=== PATIENT | female | born 1940 | race Caucasian/White ===

== ENCOUNTER 2018-12-30 09:01 | Day surgery (SDC) | payer MEDICARE, OTHER ==
[~2018-12-30 09:01] MED LIST: Lactated Ringers 1,000 ML IV SCH; Lidocaine 1%/Sod Bicarbonate in NS 8.4% 1 ML Syringe IDERM PRN; Sodium Chloride 0.9% 10 ML Syringe FLUSH PRN
--- NOTE | 2018-12-30 09:45 | PCM.PREANE ---
Preanesthetic Assessment - Procedure Proposed Procedure: diag egd - Anesthesia/Transfusion/Family Hx Anesthesia History: Prior Anesthesia Reaction (1987 had trouble waking up and 2001 woke up with high bp) Family History of Anesthesia Reaction: No Transfusion History: Prior Transfusion Without Reaction - Review of Systems General: No Symptoms Pulmonary: No Symptoms Cardiovascular: No Symptoms, Chest Pain (this am- probably gas ) Gastrointestinal: Nausea (freequently) Neurological: No Symptoms Other: Reports: Sinus Problem, Neck Pain (3 days and frontal head pain), Depression, Anxiety - Physical Assessment NPO Status Date: 12/29/18 NPO Status Time: 23:25 O2 Sat by Pulse Oximetry: 98 Respiratory Rate: 16 Vital Signs: Last Vital Signs Temp 98.0 F 12/30/18 09:25 Pulse 85 12/30/18 09:25 Resp 16 12/30/18 09:25 BP 122/71 12/30/18 09:25 Pulse Ox 98 12/30/18 09:25 Height: 5 ft 2 in Weight: 38.192 kg ASA Class: 2 Mental Status: Alert & Oriented x3 Airway Class: Mallampati = 1 Dentition: Reports: Bridge Thyro-Mental Finger Breadths: 3 Mouth Opening Finger Breadths: 3 ROM/Head Extension: Full Lungs: Clear to Auscultation, Normal Respiratory Effort Cardiovascular: Regular Rate, Regular Rhythm - Allergies Allergies/Adverse Reactions: Allergies Allergy/AdvReac Type Severity Reaction Status Date / Time brimonidine [From Simbrinza] Allergy Other Verified 12/29/18 15:24 brinzolamide [From Simbrinza] Allergy Other Verified 12/29/18 15:24 codeine Allergy Other Verified 12/29/18 15:24 diphenhydramine Allergy Swelling Verified 12/29/18 15:24 [From Benadryl] Iodinated Contrast- Oral and Allergy Airway Verified 12/29/18 15:24 IV Dye Tightness latex Allergy Other Verified 12/29/18 15:24 milnacipran [From Savella] Allergy Other Verified 12/29/18 15:24 morphine Allergy Itching Verified 12/29/18 15:24 perfume Allergy Other Verified 12/29/18 15:24 pseudoephedrine Allergy Cannot Verified 12/29/18 15:24 Remember sulfasalazine Allergy Other Verified 12/29/18 15:24 [From Azulfidine] thimerosal Allergy Other Verified 12/29/18 15:24 acetaminophen [From Percocet] AdvReac Irritabilit Verified 12/29/18 15:24 y ciprofloxacin [From Cipro] AdvReac Liver Verified 12/29/18 15:24 Problems oxycodone [From Percocet] AdvReac Irritabilit Verified 12/29/18 15:24 y Penicillins AdvReac Other Verified 12/29/18 15:24 Sulfa (Sulfonamide AdvReac Other Verified 12/29/18 15:24 Antibiotics) - Blood Blood Available: No - Acknowledgements Anesthesia Type Planned: MAC Pt an Appropriate Candidate for the Planned Anesthesia: Yes Alternatives and Risks of Anesthesia Discussed w Pt/Guardian: Yes Pt/Guardian Understands and Agrees with Anesthesia Plan: Yes PreAnesthesia Questionnaire HEENT History: Reports: Cataract, Glaucoma, Hard of Hearing, Impaired Vision, Other (See Below) Other HEENT History: eustachian tube dysfunction, left otalgia, post nasal drip , bilateral hearing loss, TMJ arthralgia, tongue inflammation Respiratory History: Reports: Other (See Below) Other Respiratory History: scarring on lung tissue, history of URI Gastrointestinal History: Reports: GERD, Other (See Below) Other Gastrointestinal History: dysphagia, gastric ulcer Genitourinary History: Reports: Other (See Below) Other Genitourinary History: frequency, incontinence SOFTWARE DEVELOPER MANAGER History: Reports: Other (See Below) Other OB/BYN History: breast lump, fibrocystic breast disease with masectomy/ lumpectomy Musculoskeletal History: Reports: Osteoarthritis, Osteoporosis, Other (See Below ) Other Musculoskeletal History: rib fx from coughing during a bad cold; osteoporosis & Osteopenia Neurological History: Reports: Neuropathy, Peripheral Psychiatric History: Reports: Anxiety, Depression Endocrine/Metabolic History: Reports: Osteopenia, Osteoporosis Hematologic History: Reports: None Immunologic History: Reports: None Oncologic (Cancer) History: Reports: Uterine Dermatologic History: Reports: Other (See Below) Other Dermatologic History: hair loss, sebaceous gland hyperplasia, subcutaneous nodule - Past Surgical History HEENT Surgical History: Reports: Cataract Surgery, Oral Surgery, Tonsillectomy Cardiovascular Surgical History: Reports: None Respiratory Surgical History: Reports: None GI Surgical History: Reports: Cholecystectomy Female Surgical History: Reports: Breast Implant, Hysterectomy, Other (See Below) Other Female Surgeries/Procedures: Uterine CA Musculoskeletal Surgical History: Reports: Other (See Below) Other Musculoskeletal Surgeries/Procedures:: femur fracture repair Oncologic Surgical History: Reports: None - SUBSTANCE USE Smoking Status *Q: Former Smoker (quit 1982) Tobacco Use Within Last Twelve Months: No Second Hand Smoke Exposure: No Days Per Week of Alcohol Use: 0 Recreational Drug Use History: No - HOME MEDS Home Medications: Home Meds Calcium Carbonate [Calcium] 1,200 mg PO DAILY 12/29/18 [History] DULoxetine HCl [Duloxetine HCl] 30 mg PO DAILY 12/29/18 [History] Denosumab [Prolia] 1 dose SQ Q180D 12/29/18 [History] Docusate Sodium [Colace] 100 mg PO DAILY 12/29/18 [History] Dorzolamide HCl/Timolol Maleat [Dorzolamide-Timolol Eye Drops] 1 drop EYEBOTH BID 12/29/18 [History] Famotidine 20 mg PO BID 12/29/18 [History] Inulin/Chromium Picolinate [Fiber Gummies] 2 tab PO DAILY 12/29/18 [History] LORazepam 0.5 mg PO TID 12/29/18 [History] Lactulose [Chronulac] 15 - 30 ml PO BID PRN 12/29/18 [History] Latanoprost 1 drop EYEBOTH BEDTIME 12/29/18 [History] Menthol/Methyl Salicylate [Icy Hot] 1 dose TOP ASDIRECTED 12/29/18 [History] Mirabegron [Myrbetriq] 25 mg PO BEDTIME 12/29/18 [History] Mv,Samuel,Iron,Mn/Folic Acid/Chol [Hair, Skin and Nails Capsule] 1 cap PO DAILY [History] Netarsudil Mesylate [Rhopressa] 1 drop EYEBOTH BEDTIME 12/29/18 [History] Ondansetron [Ondansetron ODT] 4 mg PO Q8H PRN 12/29/18 [History] Vit C/E/Zn/Coppr/Lutein/Zeaxan [Preservision Areds 2 Softgel] 1 cap PO DAILY [History] traMADol HCl [Tramadol HCl] 100 mg PO BID 12/29/18 [History] - CURRENT (IN HOUSE) MEDS Current Meds: Current Medications Lactated Ringer's (Ringers, Lactated) 1,000 mls @ 125 mls/hr IV ASDIRECTED ELLEN Stop: 12/30/18 23:00 Lidocaine/Sodium Bicarbonate (Buffered Lidocaine 1% In Ns 8.4%) 0.25 ml IDERM ONETIME PRN PRN Reason: Prior to IV Start Stop: 12/30/18 23:00 Sodium Chloride (Saline Flush) 10 ml FLUSH ASDIRECTED PRN PRN Reason: Keep Vein Open Stop: 12/30/18 23:00
[2018-12-30] MEDS ORDERED: Propofol 200 MG/20 ML SDV ONE (10:19)
[2018-12-30] MEDS ORDERED: Ondansetron 4 MG/2 ML SDV ONE (10:59)
--- NOTE | 2018-12-30 11:07 | PCM48HPAN ---
Post Anesthesia Note - EVALUATION WITHIN 48HRS OF ANESTHETIC Vital Signs in Normal Range: Yes Patient Participated in Evaluation: Yes Respiratory Function Stable: Yes Airway Patent: Yes Cardiovascular Function Stable: Yes Hydration Status Stable: Yes Pain Control Satisfactory: Yes Nausea and Vomiting Control Satisfactory: Yes Mental Status Recovered: Yes Pulse Rate: 93 SaO2: 96 Resp Rate: 16 Temperature: 98 F Blood Pressure: 96/54
--- NOTE | 2018-12-30 11:21 | PCM.OPNOTE ---
- General Post-Op/Procedure Note Date of Surgery/Procedure: 12/30/18 Operative Procedure(s): esophagogastroduodenoscopy with biopsy Findings: 1) gastritis 2) distal esophagitis Primary Surgeon: Jose Manuel Schwartz Anesthesia Provider: Iqra Lawson Pathology: 1) antrum 2) GE junction 3) distal esophagus 4) mid-esophagus 5) proximal esophagus Complications: None Condition: Good Free Text/Narrative:: Indications for surgery: The patient is a 78 yo female, with a history of chronic GERD, presenting with worsening symptoms. The patient was consented for esophagogastroduodenoscopy with possible biopsy. Indications, risks, and benefits were discussed. Description of procedure: After surgical consent was verified, the patient was brought to the endoscopy suite. Anesthesia inducted monitored anesthesia care. A procedural time-out was performed to verify proper patient and proper procedure. Appropriate padding and straps were placed. A bite block was placed. An endoscope was inserted through the mouth and advanced down the esophagus, into the stomach, through the pylorus, and into the 2nd portion of the duodenum. The scope was then withdrawn into the stomach. Retroflexed views of the GE junction were obtained. The scope was withdrawn through the GE junction, and the esophagus was inspected. There was evidence of mild gastritis, as well as inflammation of the esophagus in the distal to mid-portion. Biopsy of the gastric antrum was performed. Biopsy of the GE junction was also performed. Biopsies of the distal, mid, and proximal esophagus were performed. The patient tolerated the procedure well, was brought out of anesthesia, and transported to the PACU in stable condition. I was present and scrubbed for the entirety of the case. The patient will be placed on twice daily PPI. Jose Manuel Schwartz M.D., F.A.C.S. General Surgery
== END 2018-12-30 12:15 | disposition home or self-care (01) ==
LOC: JD.SDS 09:01
PROVIDERS: ATTEND Student in an Organized Health Care Education/Training Program
DX: K29.70 Gastritis, unspecified, without bleeding (principal); K20.9 Esophagitis, unspecified; K21.9 Gastro-esophageal reflux disease without esophagitis; J06.9 Acute upper respiratory infection, unspecified; M13.0 Polyarthritis, unspecified; R60.9 Edema, unspecified; F32.9 Major depressive disorder, single episode, unspecified; F41.9 Anxiety disorder, unspecified; Z87.891 Personal history of nicotine dependence; Z87.09 Personal history of other diseases of the respiratory system; Z88.1 Allergy status to other antibiotic agents; Z88.5 Allergy status to narcotic agent; Z88.0 Allergy status to penicillin; Z88.2 Allergy status to sulfonamides; Z88.8 Allergy status to other drugs, medicaments and biological substances
CPT/HCPCS: 43239; 93005; J2405; J2704; J7120; 00731

== ENCOUNTER 2021-07-22 13:23 | Emergency (ER) | payer MEDICARE, OTHER ==
--- NOTE | 2021-07-22 15:29 | EDM.PDOC ---
ED HPI GENERAL MEDICAL PROBLEM - General Chief Complaint: ENT Problem Stated Complaint: DENTAL COMPLAINT/NECK PAIN Time Seen by Provider: 07/22/21 15:02 Source of Information: Reports: Patient, RN Notes Reviewed History Limitations: Reports: No Limitations - History of Present Illness INITIAL COMMENTS - FREE TEXT/NARRATIVE: Patient is a 80-year-old female presents to the ER for her ongoing dental pain/issue. Patient notes that she has been having issue with her right lower molar for roughly 3 months. States that she feels a lump at the back of her right molar. Has been using some dental floss and dental picks to try to keep this area clean. She has been to her primary dentist and has gotten some x-rays and evaluated but states that she needs to be seen by rubber grinder. Patient states that she has to wait until November to be seen in [place], or can be seen by the rubber grinder in [place] in September. She has been placed on amoxicillin a few months ago, and was given another prescription of amoxicillin for her ongoing dental issue. States that she just restarted the amoxicillin and is only taken 2 doses. She is on tramadol for chronic pain management and states that the pain seems to be somewhat controlled, due to being on tramadol but it is still very tender. Patient also is complaining of some neck pain. She states that this only started recently as well. She is not sure if maybe she pulled a muscle in her neck. She does have some mild right lower facial swelling associated with this. No obvious lymphadenopathy or abscess. Right tooth Pain Score (Numeric/FACES): 8 - Related Data Allergies Allergy/AdvReac Type Severity Reaction Status Date / Time brimonidine [From Simbrinza] Allergy Other Verified 07/22/21 14:32 brinzolamide [From Simbrinza] Allergy Other Verified 07/22/21 14:32 codeine Allergy Other Verified 07/22/21 14:32 diphenhydramine Allergy Swelling Verified 07/22/21 14:32 [From Benadryl] Iodinated Contrast Media Allergy Airway Verified 07/22/21 14:32 [Iodinated Contrast- Oral Tightness and IV Dye] latex Allergy Other Verified 07/22/21 14:32 milnacipran [From Savella] Allergy Other Verified 07/22/21 14:32 morphine Allergy Itching Verified 07/22/21 14:32 perfume Allergy Other Verified 07/22/21 14:32 pseudoephedrine Allergy Cannot Verified 07/22/21 14:32 Remember sulfasalazine Allergy Other Verified 07/22/21 14:32 [From Azulfidine] thimerosal Allergy Other Verified 07/22/21 14:32 acetaminophen [From Percocet] AdvReac Irritabilit Verified 07/22/21 14:32 y ciprofloxacin [From Cipro] AdvReac Liver Verified 07/22/21 14:32 Problems oxycodone [From Percocet] AdvReac Irritabilit Verified 07/22/21 14:32 y Penicillins AdvReac Other Verified 07/22/21 14:32 Sulfa (Sulfonamide AdvReac Other Verified 07/22/21 14:32 Antibiotics) Home Meds: Home Meds Denosumab [Prolia] 1 dose SQ Q180D 12/29/18 [History] Docusate Sodium [Colace] 100 mg PO DAILY 12/29/18 [History] Dorzolamide HCl/Timolol Maleat [Dorzolamide-Timolol Eye Drops] 1 drop EYEBOTH BID 12/29/18 [History] LORazepam 1 mg PO BEDTIME 12/29/18 [History] Lactulose [Chronulac] 15 - 30 ml PO DAILY PRN 12/29/18 [History] Latanoprost 1 drop EYEBOTH BEDTIME 12/29/18 [History] Netarsudil Mesylate [Rhopressa] 1 drop EYEBOTH BEDTIME 12/29/18 [History] Ondansetron [Ondansetron ODT] 4 mg PO Q8H PRN 12/29/18 [History] Vit C/E/Zn/Coppr/Lutein/Zeaxan [Preservision Areds 2 Softgel] 1 cap PO DAILY 12/29/18 [History] traMADol HCl [Tramadol HCl] 150 mg PO BID 12/29/18 [History] Amoxicillin/Clavulanate K [Augmentin 875-125 MG] 1 tab PO BID #20 tablet 07/22/21 [Rx] Famotidine 20 mg PO DAILY 07/22/21 [History] [place]-3S/DHA/Epa/Fish Oil/D3 [[place]-3 + D Softgel] 1 cap PO DAILY 07/22/21 [History] Pantoprazole Sodium [Protonix] 20 mg PO DAILY 07/22/21 [History] clomiPRAMINE HCl [Anafranil] 25 mg PO BEDTIME 07/22/21 [History] Past Medical History HEENT History: Reports: Cataract, Glaucoma, Impaired Vision, Other (See Below) Other HEENT History: eustachian tube dysfunction, left otalgia, post nasal drip, bilateral hearing loss, TMJ arthralgia, tongue inflammation Cardiovascular History: Reports: High Cholesterol Respiratory History: Reports: Other (See Below) Other Respiratory History: scarring on lung tissue, history of URI Gastrointestinal History: Reports: GERD, Other (See Below) Other Gastrointestinal History: dysphagia, gastric ulcer Genitourinary History: Reports: Other (See Below) Other Genitourinary History: incontinence at night 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 (See Below) Other PLANNING CONSULTANT History: breast lump, fibrocystic breast disease with masectomy/lumpectomy Musculoskeletal History: Reports: Osteoarthritis, Osteoporosis, Other (See [place] ow) Other Musculoskeletal History: rib fx from coughing during a bad cold; osteoporosis & Osteopenia Neurological History: Reports: Neuropathy, Peripheral Psychiatric History: Reports: Anxiety, Depression Endocrine/Metabolic History: Reports: Osteopenia, Osteoporosis Hematologic History: Reports: None Immunologic History: Reports: None Oncologic (Cancer) History: Reports: Uterine Dermatologic History: Reports: Other (See Below) Other Dermatologic History: hair loss, sebaceous gland hyperplasia, subcutaneous nodule - Infectious Disease History Infectious Disease History: Reports: Chicken Pox, Measles - Past Surgical History HEENT Surgical History: Reports: Cataract Surgery, Oral Surgery, Tonsillectomy Cardiovascular Surgical History: Reports: None Respiratory Surgical History: Reports: None GI Surgical History: Reports: Cholecystectomy Female Surgical History: Reports: Breast Implant, Hysterectomy, Other (See Below) Other Female Surgeries/Procedures: Uterine CA Musculoskeletal Surgical History: Reports: Other (See Below) Other Musculoskeletal Surgeries/Procedures:: femur fracture repair - jul 2018 Oncologic Surgical History: Reports: None Social & Family History - Family History Family Medical History: No Pertinent Family History - Tobacco Use Tobacco Use Status *Q: Former Tobacco User Years of Tobacco use: 4 Used Tobacco, but Quit: Yes Month/Year Tobacco Last Used: 1982 - Caffeine Use Caffeine Use: Reports: Soda - Recreational Drug Use Recreational Drug Use: No ED ROS ENT - Review of Systems Review Of Systems: Comprehensive ROS is negative, except as noted in HPI. ED EXAM, ENT - Physical Exam Exam: See Below Exam Limited By: No Limitations General Appearance: Alert, WD/WN, No Apparent Distress Mouth/Throat: Normal Inspection, Normal Gums, Normal Lips, Normal Oropharynx, Dental Pain (R lower molar and gumline around molar) Neck: Normal Inspection, Supple, Non-Tender, Full Range of Motion. No: Lymphadenopathy (L), Lymphadenopathy (R) Respiratory/Chest: No Respiratory Distress, Lungs Clear, Normal Breath Sounds, No Accessory Muscle Use, Chest Non-Tender Cardiovascular: Normal Peripheral Pulses, Regular Rate, Rhythm, No Edema Extremities: Normal Inspection, Normal Capillary Refill Neurological: Alert, Oriented, Normal Cognition, No Motor/Sensory Deficits Psychiatric: Normal Affect, Normal Mood Skin: Warm, Dry, Intact, Normal Color, No Rash Course - Vital Signs Last Recorded V/S: Last Vital Signs Temp 98.1 F 07/22/21 14:30 Pulse 92 07/22/21 14:30 Resp 14 07/22/21 14:30 BP 132/80 07/22/21 14:30 Pulse Ox 98 07/22/21 14:30 - Re-Assessments/Exams Free Text/Narrative Re-Assessment/Exam: 07/22/21 15:32 Patient presents to the ER for evaluation of her ongoing dental issue. After thorough examination there is no obvious abscess to drain however since this is her second round of amoxicillin, we will have her discontinue this and start her on Augmentin for ongoing management. I did stress to her that although we could provide her with CTs at today's visit I do not believe there would be benefit for any of her issues. She seemed to verbalize understanding at this time. I did also recommend that she try to be seen in [place] for her rubber grinder appointment to see if she can get seen a little bit sooner. I did also offer some pain medication for out patient management due to the tramadol not providing accurate relief of her pain and she declined at this time. Departure - Departure Time of Disposition: 15:26 Disposition: Home, Self-Care 01 Condition: Good Clinical Impression: Pain, dental - Discharge Information *PRESCRIPTION DRUG MONITORING PROGRAM REVIEWED*: No *COPY OF PRESCRIPTION DRUG MONITORING REPORT IN PATIENT REMI: No Prescriptions: Amoxicillin/Clavulanate K [Augmentin 875-125 MG] 1 tab PO BID #20 tablet Instructions: Dental Pain Referrals: Ricarda Correia, LEAD FABRICATOR [Primary Care Provider] - Forms: ED Department Discharge Additional Instructions: You have been evaluated in the ED for your dental pain. You have been provided with a script for Augmentin. Please take this medication as directed. Please note this antibiotic can take up to 48 hours to provide coverage. If you do not notice an improvement in the swelling within 3 days time I recommend you seek care for reevaluation for change in antibiotics. Your prescription was electronically sent to [facility] pharmacy located near [facility], this pharmacy is only open from 12 to 4 PM on Sundays, you will need to go there during this timeframe to obtain this medication and take as prescribed. This antibiotic can cause diarrhea, recommend that you start a probiotic while taking this medication. You may use hot pack/ ice packs to the affected area as tolerated in 15-20 minute intervals. I would strongly recommend that you look in [place] for an rubber grinder to get seen a little bit sooner. There should be multiple providers that provide endodontic services in [facility]; if they rubber grinder that they re ferred you to has a long waiting period. They should be able to provide you the most thorough evaluation of your ongoing dental issue. Please return to the ED if your symptoms change or worsen. Sepsis Event Note (ED) - Evaluation Sepsis Screening Result: No Definite Risk - Focused Exam Vital Signs: Vital Signs Temp Pulse Resp BP Pulse Ox 07/22/21 14:30 98.1 F 92 14 132/80 98
[2021-07-22] MEDS ORDERED: cefTRIAXone 1 GM, Lidocaine 1% 2.1 ML IM ONE ×2 (15:41)
== END 2021-07-22 16:10 | disposition home or self-care (01) ==
LOC: JD.ED 13:23
DX: K08.89 Other specified disorders of teeth and supporting structures (principal); K21.9 Gastro-esophageal reflux disease without esophagitis; E78.00 Pure hypercholesterolemia, unspecified; Z88.0 Allergy status to penicillin; Z88.1 Allergy status to other antibiotic agents; Z88.5 Allergy status to narcotic agent; Z88.8 Allergy status to other drugs, medicaments and biological substances; Z87.891 Personal history of nicotine dependence; Z79.899 Other long term (current) drug therapy
CPT/HCPCS: 96372; 99282; J0696

== ENCOUNTER 2022-03-02 14:02 | Emergency (ER) | payer MEDICARE, OTHER ==
[2022-03-02] MEDS ORDERED: Sodium Chloride 0.9% 10 ML Syringe FLUSH PRN (15:47)
[2022-03-02] MEDS ORDERED: Famotidine 20 MG/2 ML SDV IVPUSH PRN (15:51)
[2022-03-02] MEDS ORDERED: EPINEPHrine 1 MG/ML SDV IM PRN (15:51)
[2022-03-02] MEDS ORDERED: methylPREDNISolone Sodium Succinate 125 MG/2 ML SDV IVPUSH PRN (15:51)
[2022-03-02] MEDS ORDERED: diphenhydrAMINE 50 MG/ML SDV IVPUSH PRN (15:51)
[2022-03-02] MEDS ORDERED: Sodium Chloride 0.9% 10 ML Syringe FLUSH SCH (16:00)
== END 2022-03-02 18:19 | disposition home or self-care (01) ==
LOC: JD.ED 14:02
DX: U07.1 COVID-19 (principal); K21.9 Gastro-esophageal reflux disease without esophagitis; Z88.8 Allergy status to other drugs, medicaments and biological substances; Z88.5 Allergy status to narcotic agent; Z91.041 Radiographic dye allergy status; Z91.040 Latex allergy status; Z88.6 Allergy status to analgesic agent; Z88.0 Allergy status to penicillin; Z88.2 Allergy status to sulfonamides; Z88.1 Allergy status to other antibiotic agents; Z79.899 Other long term (current) drug therapy; Z90.49 Acquired absence of other specified parts of digestive tract; Z90.710 Acquired absence of both cervix and uterus
CPT/HCPCS: 36415; 71045; 80053; 85025; 99283; M0222; Q0222

== ENCOUNTER 2022-11-27 14:50 | Emergency (ER) | payer MEDICARE, OTHER ==
[2022-11-27] MEDS ORDERED: Acetaminophen/HYDROcodone 325-5 MG Tab PO ONE (15:28)
[2022-11-27] MEDS ORDERED: traMADol 50 MG Tab PO ONE (15:58)
== END 2022-11-27 18:15 | disposition home or self-care (01) ==
LOC: JD.ED 14:50
DX: S32.020A Wedge compression fracture of second lumbar vertebra, initial encounter for closed fracture (principal); E78.00 Pure hypercholesterolemia, unspecified; K21.9 Gastro-esophageal reflux disease without esophagitis; Z88.5 Allergy status to narcotic agent; Z88.8 Allergy status to other drugs, medicaments and biological substances; Z88.2 Allergy status to sulfonamides; Z91.041 Radiographic dye allergy status; Z88.1 Allergy status to other antibiotic agents; Z91.048 Other nonmedicinal substance allergy status; Z91.040 Latex allergy status; W18.30XA Fall on same level, unspecified, initial encounter; Y92.009 Unspecified place in unspecified non-institutional (private) residence as the place of occurrence of the external cause
CPT/HCPCS: 70450; 71250; 72125; 74176; 99283; A9270

== ENCOUNTER 2023-11-27 22:08 | Emergency (ER) | payer MEDICARE, OTHER | END 2023-11-28 01:00 | disposition home or self-care (01) | LOC: JD.ED 22:08 | DX: S06.0X0A Concussion without loss of consciousness, initial encounter (principal); E78.00 Pure hypercholesterolemia, unspecified; K21.9 Gastro-esophageal reflux disease without esophagitis; Z88.8 Allergy status to other drugs, medicaments and biological substances; Z88.5 Allergy status to narcotic agent; Z91.040 Latex allergy status; Z91.041 Radiographic dye allergy status; Z88.0 Allergy status to penicillin; Z88.2 Allergy status to sulfonamides; Z88.6 Allergy status to analgesic agent; Z90.49 Acquired absence of other specified parts of digestive tract; Z90.710 Acquired absence of both cervix and uterus; Z79.899 Other long term (current) drug therapy; W01.198A Fall on same level from slipping, tripping and stumbling with subsequent striking against other object, initial encounter; Y93.89 Activity, other specified | CPT/HCPCS: 70450; 70450-26; 72125; 72125-26; 73110-26-LT; 73110-LT; 73562-26-LT; 73562-LT; 99284 ==

== ENCOUNTER 2023-12-27 21:12 | Emergency (ER) | payer MEDICARE, OTHER ==
[2023-12-27] MEDS: Tetracaine HCl/PF 0.5% 4 ML Bottle EYELF ONE (21:53)
[2023-12-27] MEDS ORDERED: Pilocarpine 1% Ophth Soln 15 ML Bottle EYERT ONE (23:12)
[2023-12-27] MEDS: Timolol Maleate 0.5% Ophth Soln 5 ML Bottle EYERT ONE (23:51)
[2023-12-28] MEDS ORDERED: Dorzolamide/Timolol 2%-0.5% Ophth Soln 10 ML Bottle EYERT ONE (23:09)
== END 2023-12-28 05:25 | disposition home or self-care (01) ==
LOC: JD.ED 21:12
DX: H40.9 Unspecified glaucoma (principal); E78.00 Pure hypercholesterolemia, unspecified; K21.9 Gastro-esophageal reflux disease without esophagitis; Z79.899 Other long term (current) drug therapy; Z88.0 Allergy status to penicillin; Z88.2 Allergy status to sulfonamides; Z88.1 Allergy status to other antibiotic agents; Z88.8 Allergy status to other drugs, medicaments and biological substances; Z88.5 Allergy status to narcotic agent; Z91.041 Radiographic dye allergy status; Z91.040 Latex allergy status
CPT/HCPCS: 99283; A9270; J3490

== ENCOUNTER 2024-02-25 02:03 | Emergency (ER) | payer MEDICARE, OTHER ==
[2024-02-25] MEDS: Carboxymethylcellulose Sodium 1% Ophth Gel 15 ML Bottle EYEBOTH ONE (02:26)
== END 2024-02-25 02:40 | disposition home or self-care (01) ==
LOC: JD.ED 02:03
DX: H10.213 Acute toxic conjunctivitis, bilateral (principal); K21.9 Gastro-esophageal reflux disease without esophagitis; Z86.16 Personal history of COVID-19; Z90.49 Acquired absence of other specified parts of digestive tract; Z90.710 Acquired absence of both cervix and uterus; Z79.899 Other long term (current) drug therapy; Z88.5 Allergy status to narcotic agent; Z88.0 Allergy status to penicillin; Z88.2 Allergy status to sulfonamides; Z88.8 Allergy status to other drugs, medicaments and biological substances; Z91.048 Other nonmedicinal substance allergy status; Z91.040 Latex allergy status
CPT/HCPCS: 99283; A9270